=== PATIENT | female | born 1960 | race Caucasian/White ===

== ENCOUNTER → 2018-01-12 | Emergency (ER) | payer OTHER | END | disposition home or self-care (01) | LOC: FTE 21:11 | DX: S00.83XA Contusion of other part of head, initial encounter (principal); S09.93XA Unspecified injury of face, initial encounter; I10 Essential (primary) hypertension; E03.9 Hypothyroidism, unspecified; I25.10 Atherosclerotic heart disease of native coronary artery without angina pectoris; W01.118A Fall on same level from slipping, tripping and stumbling with subsequent striking against other sharp object, initial encounter; Y92.9 Unspecified place or not applicable; Z86.73 Personal history of transient ischemic attack (TIA), and cerebral infarction without residual deficits; Z79.01 Long term (current) use of anticoagulants | CPT/HCPCS: 70450; 93005; 99284-25 ==